=== PATIENT | female | born 1950 | race Caucasian/White ===

== ENCOUNTER 2017-01-28 12:36 | Emergency (ER) | payer MEDICARE ==
[~2017-01-28] VITALS: Ht 154.9 cm; Wt 44.0 kg
[~2017-01-28 12:36] MED LIST: LEVO25TA4 PO
[2017-01-28 12:40] VITALS: BP 216/100; PULSE 103; RESP 20; TEMP 98.7; O2SAT 98
[2017-01-28 12:50] VITALS: BP 186/87; PULSE 93; RESP 17; O2SAT 98
[2017-01-28] MEDS ORDERED: ASPI325T PO (12:57)
[2017-01-28] MEDS ORDERED: DIAZ5TAB PO (12:57)
[2017-01-28 12:59] VITALS: O2SAT 98
[2017-01-28] MEDS ORDERED: SODIUM CHLORIDE 0.9% FLUSH 10 ML FLUSH IVF PRN (13:00)
--- NOTE | 2017-01-28 13:11 | PD ---
HPI Chief Complaint: Neuro Symptoms/ Deficits Time Seen by Provider: 12:55 Travel History International Travel<30 days: No Contact w/Intl Traveler<30days: No Traveled to known affect area: No History of Present Illness HPI The patient was seen and examined in the presence of the nurse. This patient complains of neurologic symptoms. She was admitted here 8 months ago for neurologic symptoms and saw a neurologist and had studies done but then signed out against advice. She does follow up with a neurologist Dr. Sargent as an outpatient and saw him 2 months ago. For the last 8 months she has had frequent spells where she gets stuttering and a phasic speech and left arm numbness. The spells resolve on their own. She had those again today at 11 AM but decided to come to the emergency room today because she also had some numbness in her left face. No motor strength problems. No confusion or head injury. She took 2 aspirin today. Severity of symptoms was moderate. Duration 2 hours. No alleviating factors. Her speech is back to normal before I evaluated her. PFSH Past Medical History Cerebrovascular Accident: Yes (TIA) Diminished Hearing: No Thyroid Disease: Yes ?: Not Past Surgical History Eye Surgery: Yes (BILAT LASIX SX) Other Surgery: Yes (BREAST IMPLANTS) Social History Alcohol Use: Yes (SPECIAL OCCASIONS - LAST DRINK 08/31/07; PT'S -DAY) Tobacco Use: Yes (1PPD) Substance Use: No (PT DENIES) Allergies-Medications (Allergen,Severity, Reaction): Coded Allergies: Flagyl (Verified Adverse Reaction, Severe, NV, 01/28/17) Reported Meds & Prescriptions Reported Meds & Active Scripts Active Reported Diazepam 5 Mg Tab 5 Mg PO BID PRN Aspirin 325 Mg Tab 325 Mg PO DAILY Review of Systems General / Constitutional: No: Fever Eyes: No: Visual changes HENT: No: Headaches Cardiovascular: No: Chest Pain or Discomfort Respiratory: No: Shortness of Breath Gastrointestinal: No: Abdominal Pain Genitourinary: No: Dysuria Musculoskeletal: No: Pain Skin: No Rash Neurologic: Positive: Slurred Speech, Sensory Disturbance, No: Weakness Psychiatric: No: Depression Endocrine: No: Polydipsia Hematologic/Lymphatic: No: Easy Bruising Physical Exam Narrative GENERAL: Well-nourished, well-developed patient in no apparent distress. SKIN: Focused skin assessment reveals no rash and nodules. Skin is Warm and dry. HEAD: Atraumatic. Normocephalic. EYES: Pupils equal and round. No scleral icterus. No injection or drainage. ENT: No nasal bleeding or discharge. Mucous membranes pink and moist. NECK: Trachea midline. No JVD. CARDIOVASCULAR: Regular rate and rhythm. No murmur appreciated. RESPIRATORY: No accessory muscle use. Clear to auscultation. Breath sounds equal bilaterally. GASTROINTESTINAL: Abdomen soft, non-tender, nondistended. Hepatic and splenic margins not palpable. MUSCULOSKELETAL: No obvious deformities. No clubbing. No cyanosis. No edema. NEUROLOGICAL: Awake and alert. No obvious cranial nerve deficits. Motor grossly within normal limits. Normal speech. Subjective sensory deficit in the left arm from shoulder to fingertips as well as the left cheek. She has some sensation in those areas but feels it's not as strong as the opposite side. No facial droop. PSYCHIATRIC: Appropriate mood and affect; insight and judgment normal. Data Data Last Documented VS Vital Signs Date Time Temp Pulse Resp B/P Pulse Ox O2 Delivery O2 Flow Rate FiO2 01/28/17 15:24 66 15 169/75 99 Room Air 01/28/17 12:40 98.7 Orders Electrocardiogram (01/28/17 12:56) Prothrombin Time / Inr (Pt) (01/28/17 12:56) Act Partial Throm Time (Ptt) (01/28/17 12:56) Complete Blood Count With Diff (01/28/17 12:56) Basic Metabolic Panel (Bmp) (01/28/17 12:56) Ct Brain W/O Iv Contrast(Rout) (01/28/17 12:56) Ecg Monitoring (01/28/17 12:56) Iv Access Insert/Monitor (01/28/17 12:56) Oximetry (01/28/17 12:56) Sodium Chloride 0.9% Flush (Ns Flush) (01/28/17 13:00) Cta Neck W Iv Contrast W 3d (01/28/17 ) Iohexol 350 Inj (Omnipaque 350 Inj) (01/28/17 15:16) Labs Laboratory Tests Test 01/28/17 13:00 White Blood Count 9.9 TH/MM3 Red Blood Count 4.61 MIL/MM3 Hemoglobin 13.8 GM/DL Hematocrit 41.9 % Mean Corpuscular Volume 90.9 FL Mean Corpuscular Hemoglobin 30.0 PG Mean Corpuscular Hemoglobin 33.0 % Concent Red Cell Distribution Width 13.6 % Platelet Count 125 TH/MM3 Mean Platelet Volume 10.9 FL Neutrophils (%) (Auto) 57.7 % Lymphocytes (%) (Auto) 35.2 % Monocytes (%) (Auto) 4.8 % Eosinophils (%) (Auto) 1.7 % Basophils (%) (Auto) 0.6 % Neutrophils # (Auto) 5.7 TH/MM3 Lymphocytes # (Auto) 3.5 TH/MM3 Monocytes # (Auto) 0.5 TH/MM3 Eosinophils # (Auto) 0.2 TH/MM3 Basophils # (Auto) 0.1 TH/MM3 CBC Comment DIFF FINAL Differential Comment Prothrombin Time 10.4 SEC Prothromb Time International 0.9 RATIO Ratio Activated Partial 26.1 SEC Thromboplast Time Sodium Level 136 MEQ/L Potassium Level 4.1 MEQ/L Chloride Level 103 MEQ/L Carbon Dioxide Level 26.3 MEQ/L Anion Gap 7 MEQ/L Blood Urea Nitrogen 16 MG/DL Creatinine 0.81 MG/DL Estimat Glomerular Filtration 71 ML/MIN Rate Random Glucose 105 MG/DL Calcium Level 9.3 MG/DL MDM Medical Decision Making Medical Screen Exam Complete: Yes Emergency Medical Condition: Yes Medical Record Reviewed: Yes Differential Diagnosis Ischemic CVA, hemorrhagic CVA, TIA Narrative Course I have reviewed the patient's electronic medical record. Reviewed neurologic consultation from a months ago. Reviewed her imaging studies. Does have vascular disease in the carotid areas I spoke with her neurologist Dr. Sargent He recommends doing brain CT as well as CT of the carotids now We will discuss the results when available Patient is not needing stroke alert at this time She is not a TPA candidate. Many of these symptoms are chronic over 8 months and she has had significant resolution in the last 2 hours with her speech being back to normal Blood pressure 186 systolic at this time IV placed I reviewed her EKG which shows sinus rhythm without ST elevation or ectopy Extended cardiac monitoring reveals sinus rhythm without ectopy CBC is normal Metabolic profile is normal Coagulation studies are normal Brain CT is stable without hemorrhage CTA of the carotids is reviewed in detail with neurologist. She does have a 60- 70% obstruction on the right side. The patient is adamant about not staying. She says if we try to admit her she will sign out AGAINST MEDICAL ADVICE. Her neurologist says that while not ideal we can discharge her and she have to follow up with her vascular surgeon Dr. Ramsey as soon as she can to discuss the new findings. She will follow-up with a neurologist as well. Patient is going to have to assume some risk areas we wanted to admit her and get this taken care of in the hospital given her waxing and waning neurologic symptoms but she is refusing. 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 Ramsey, vascular surgeon, tomorrow for follow-up Return if significant worsening occurs Med/Other Pt SpecificInfo: Other Disposition: 01 DISCHARGE HOME Condition: Stable Song Nuñez MD Jan 28, 2017 13:11
[2017-01-28 13:20] LABS: AUTOMATED NEUTROPHIL # 5.7 TH/MM3 (1.8-7.7); BASOPHIL # 0.1 TH/MM3 (0-0.2); BASOPHIL % 0.6 % (0.0-2.0); EOSINOPHIL # 0.2 TH/MM3 (0-0.4); EOSINOPHIL % 1.7 % (0.0-4.0); HEMATOCRIT 41.9 % (35.0-46.0); HEMO FLAGS DIFF FINAL; LYMPH % 35.2 % (9.0-44.0); LYMPHOCYTE # 3.5 TH/MM3 (1.0-4.8); MEAN CELL VOLUME 90.9 FL (80.0-100.0); MONO % 4.8 % (0.0-8.0); NEUT % 57.7 % (16.0-70.0); PLATELET COUNT 125 TH/MM3 (150-450); RED BLOOD COUNT 4.61 MIL/MM3 (4.00-5.30); RED CELL DISTRIBUTION WIDTH 13.6 % (11.6-17.2); WHITE BLOOD COUNT 9.9 TH/MM3 (4.0-11.0)
[2017-01-28 13:27] LABS: APTT (PATIENT) 26.1 SEC (24.3-30.1); INTERNATIONAL NORMALIZED RATIO 0.9 RATIO; PROTHROMBIN TIME - PATIENT 10.4 SEC (9.8-11.6)
[2017-01-28 13:38] LABS: BICARBONATE 26.3 MEQ/L (21.0-32.0); POTASSIUM 4.1 MEQ/L (3.5-5.1)
--- NOTE | 2017-01-28 14:28 | RADRPT ---
EXAM DATE/TIME: 01/28/2017 14:06 [facility] COMPARISON: CT BRAIN W/O CONTRAST, May 26, 2016, 13:39. INDICATIONS : Patient had slurred speach and headaches. RADIATION DOSE: 26.46 CTDIvol (mGy) MEDICAL HISTORY : Prior TIA. SURGICAL HISTORY : None. ENCOUNTER: Initial ACUITY: 1 day PAIN SCALE: 4/10 LOCATION: Left cranial TECHNIQUE: Multiple contiguous axial images were obtained of the head. Using automated exposure control and adj ustment of the mA and/or kV according to patient size, radiation dose was kept as low as reasonably a chievable to obtain optimal diagnostic quality images. DICOM format image data is available electro nically for review and comparison. FINDINGS: There is mild bilateral medial orbital frontal encephalomalacia which may relate to remote trauma. Th is is unchanged. There is also small area of encephalomalacia involving the mid high convexity right parietal occipital region which appears to have been subacute at the time of the comparison exam. The re is no evidence of intracranial mass or hemorrhage. There is nothing to specifically indicate an ac [place] infarction. The extracranial structures are benign and intact. CONCLUSION: No definite acute intracranial findings. Old injuries as described. Brett Quintana MD on January 28, 2017 at 14:25 Board Certified Radiologist. This report was verified electronically.
[2017-01-28] MEDS ORDERED: IOHEXOL 350 MG/ML 10 ML VIAL (for RAD DIAG) IV ONE (15:16)
[2017-01-28 15:24] VITALS: BP 169/75; PULSE 66; RESP 15; O2SAT 99
--- NOTE | 2017-01-28 15:40 | RADRPT ---
EXAM DATE/TIME: 01/28/2017 14:06 [facility] COMPARISON: CTA CAROTID ARTERIES W 3D RECON, May 26, 2016, 13:44. INDICATIONS : Patient had slurred speach and headaches. IV CONTRAST: 69 cc Omnipaque 350 (iohexol) IV RADIATION DOSE: 24.02 CTDIvol (mGy) MEDICAL HISTORY : Prior TIA SURGICAL HISTORY : None. ENCOUNTER: Initial ACUITY: 1 day PAIN SCALE: 4/10 LOCATION: Left cranial Elevated flow velocities and ICA/CCA ratios have been found to correlate with increased degrees of vessel stenosis, calculated as percentage of diameter relative to a normal segment of distal ICA/CCA. TECHNIQUE: Volumetric scanning was performed using a multirow detector CT scanner. The data was post processed with a variety of visualization algorithms including full-volume maximum intensity projection, multip lanar sliding thin-slab reformation, curved-planar reformation, and surface-rendering techniques. Us ing automated exposure control and adjustment of the mA and/or kV according to patient size, radiatio n dose was kept as low as reasonably achievable to obtain optimal diagnostic quality images. DICOM f ormat image data is available electronically for review and comparison. FINDINGS: AORTIC ARCH: There is a three-vessel origin of the great vessels from the aorta. Moderate calcification is seen a t the origin of the left subclavian artery. RIGHT CAROTID: The common carotid artery is intact. There is large ulceration origin of the right common carotid co ntaining the mixture of soft and hard plaque compromising the lumen by 60-70%. LEFT CAROTID: The common carotid artery is intact. Smooth less than 50% stenosis is present origin of the left int ernal carotid. VERTEBRALS: Both vertebral arteries are patent with calcification of the origin of the right vertebral artery. CONCLUSION: Borderline significant stenosis on the right the large ulceration present containing both hard and so ft plaque. Mild stenosis on the left. Az Osman MD FACR on January 28, 2017 at 15:35 Board Certified Radiologist. This report was verified electronically.
--- NOTE | 2017-01-29 11:33 | EKG ---
Date Performed: 01/28/2017 Time Performed: 12:50:23 PTAGE: 66 years EKG: Sinus rhythm POSSIBLE RIGHT ATRIAL ENLARGEMENT BORDERLINE ECG PREVIOUS TRACING : 05/26/2016 14.09 Right atrial abnormality is new since the prior tracing. DOCTOR: Mihai Sheehan Interpretating Date/Time 01/29/2017 11:31:12
== END 2017-01-28 18:10 | disposition home or self-care (01) ==
LOC: NEPE 12:36
DX: G45.1 Carotid artery syndrome (hemispheric) (principal); I77.9 Disorder of arteries and arterioles, unspecified; R94.31 Abnormal electrocardiogram [ECG] [EKG]; F17.210 Nicotine dependence, cigarettes, uncomplicated; Z86.73 Personal history of transient ischemic attack (TIA), and cerebral infarction without residual deficits; Z79.82 Long term (current) use of aspirin; Z79.899 Other long term (current) drug therapy
CPT/HCPCS: 70450; 70498; 80048; 85025; 85610; 85730; 93005; 99285; Q9967

== ENCOUNTER 2017-01-29 10:37 | Inpatient (IN) | payer MEDICARE ==
[2017-01-29] VITALS (7 sets, daily range): BP systolic 136–178; BP diastolic 59–85; PULSE 61–95; RESP 14–20; TEMP 97.7–97.9; O2SAT 98–99
[~2017-01-29] VITALS: Ht 154.9 cm; Wt 47.0 kg
[~2017-01-29 10:37] MED LIST changes: +ASPI325T PO; +DIAZ5TAB PO; -LEVO25TA4 PO
--- NOTE | 2017-01-29 11:04 | PD ---
HPI Chief Complaint: Numbness/Tingling Time Seen by Provider: 11:04 Travel History International Travel<30 days: No Contact w/Intl Traveler<30days: No Traveled to known affect area: No History of Present Illness HPI 66 year old female with history of CAD, TIAs, thyroid disease, tobacco dependency presents to the ED for evaluation of ongoing spells of stuttering and asphasia with occasional LUE weakness and numbness. These have been intermittently occurring for the last 8 months. The spells resolve on their own. The patient is followed by Dr. Sargent. She was seen and evaluated yesterday with recommendation for admission, but did not want to be admitted, so was discharged with instructions to follow up with Dr. Ramsey. She said today with worsening of her symptoms and frontal headache, she called Dr. Sargent and was advised to come to the ED. Pt reports no chest pain or tightness; her LUE weakness has resolved at this point. She denies any nausea or vomiting; no visual disturbances. She states smokes one pack of tobacco cigarettes daily. Occasional alcohol use. No other symptoms to report this time. PFSH Past Medical History Cerebrovascular Accident: Yes (TIA) Diminished Hearing: No Thyroid Disease: Yes ?: Not Past Surgical History Eye Surgery: Yes (BILAT LASIX SX) Other Surgery: Yes (BREAST IMPLANTS) Social History Alcohol Use: Yes (SPECIAL OCCASIONS - LAST DRINK 08/31/07; PT'S B-DAY) Tobacco Use: Yes (1PPD) Substance Use: No (PT DENIES) Allergies-Medications (Allergen,Severity, Reaction): Coded Allergies: Flagyl (Verified Adverse Reaction, Severe, NV, 01/29/17) Reported Meds & Prescriptions Reported Meds & Active Scripts Active Reported Diazepam 5 Mg Tab 5 Mg PO BID PRN Aspirin 325 Mg Tab 325 Mg PO DAILY Review of Systems Except as stated in HPI: all other systems reviewed are Neg Physical Exam Narrative GENERAL: Thin female patient, ambulatory with a nonantalgic gait, no acute distress. Pt has cleared speech, but appears to struggle with words at times. SKIN: Focused skin assessment warm/dry. HEAD: Atraumatic. Normocephalic. EYES: Pupils react to equal; R seems slightly larger than left on initial exam. EOMI No scleral icterus. No injection or drainage. ENT: No nasal bleeding or discharge. Mucous membranes pink and moist. NECK: Trachea midline. No JVD. CARDIOVASCULAR: Regular rate and rhythm. No murmur appreciated. RESPIRATORY: No accessory muscle use. Clear to auscultation. Breath sounds equal bilaterally. GASTROINTESTINAL: Abdomen soft, non-tender, nondistended. Hepatic and splenic margins not palpable. MUSCULOSKELETAL: No obvious deformities. No clubbing. No cyanosis. No edema. Slight weakness LUE; no pronator drift. NEUROLOGICAL: Awake and alert. No obvious cranial nerve deficits. Moves all extremities Clear speech. PSYCHIATRIC: Appropriate mood and affect; insight and judgment normal. Data Data Last Documented VS Vital Signs Date Time Temp Pulse Resp B/P Pulse Ox O2 Delivery O2 Flow Rate FiO2 01/29/17 12:00 73 16 136/59 99 Room Air 01/29/17 10:40 97.7 Orders Electrocardiogram (01/29/17 11:14) Prothrombin Time / Inr (Pt) (01/29/17 11:14) Act Partial Throm Time (Ptt) (01/29/17 11:14) Complete Blood Count With Diff (01/29/17 11:14) Comprehensive Metabolic Panel (01/29/17 11:14) Drug Screen, Random Urine (01/29/17 11:14) Urinalysis - C+S If Indicated (01/29/17 11:14) Chest, Single Ap (01/29/17 11:14) Ecg Monitoring (01/29/17 11:14) Iv Access Insert/Monitor (01/29/17 11:14) Oximetry (01/29/17 11:14) Sodium Chloride 0.9% Flush (Ns Flush) (01/29/17 11:15) Thyroid Stimulating Hormone (01/29/17 11:14) Consult Vascular Surgery (01/29/17 ) Heparin-D5w Inj (Heparin-D5w Inj) (01/29/17 11:30) Sodium Chlor 0.9% 1000 Ml Inj (Ns 1000 M (01/29/17 11:30) Consult Neurology (01/29/17 ) Aspirin (Aspirin) (01/29/17 11:30) (Hub Use Only)In Phy Cons/Ref (01/29/17 ) [place] (01/29/17 11:28) (Hub Use Only)In Phy Cons/Ref (01/29/17 ) Labs Laboratory Tests Test 01/29/17 11:15 White Blood Count 10.0 TH/MM3 Red Blood Count 4.42 MIL/MM3 Hemoglobin 13.7 GM/DL Hematocrit 39.5 % Mean Corpuscular Volume 89.5 FL Mean Corpuscular Hemoglobin 30.9 PG Mean Corpuscular Hemoglobin 34.6 % Concent Red Cell Distribution Width 13.3 % Platelet Count 112 TH/MM3 Mean Platelet Volume 11.2 FL Neutrophils (%) (Auto) 63.9 % Lymphocytes (%) (Auto) 28.9 % Monocytes (%) (Auto) 4.9 % Eosinophils (%) (Auto) 1.6 % Basophils (%) (Auto) 0.7 % Neutrophils # (Auto) 6.4 TH/MM3 Lymphocytes # (Auto) 2.9 TH/MM3 Monocytes # (Auto) 0.5 TH/MM3 Eosinophils # (Auto) 0.2 TH/MM3 Basophils # (Auto) 0.1 TH/MM3 CBC Comment DIFF FINAL Differential Comment Sodium Level 138 MEQ/L Potassium Level 4.0 MEQ/L Chloride Level 104 MEQ/L Carbon Dioxide Level 28.1 MEQ/L Anion Gap 6 MEQ/L Blood Urea Nitrogen 14 MG/DL Creatinine 0.83 MG/DL Estimat Glomerular Filtration 69 ML/MIN Rate Random Glucose 107 MG/DL Calcium Level 9.2 MG/DL Total Bilirubin 0.3 MG/DL Aspartate Amino Transf 19 U/L (AST/SGOT) Alkaline Phosphatase 72 U/L Total Protein 7.5 GM/DL Albumin 3.9 GM/DL MDM Medical Decision Making Medical Screen Exam Complete: Yes Emergency Medical Condition: Yes Medical Record Reviewed: Yes Differential Diagnosis TIA v CVA v CAD v electrolyte abnormality v neoplasm Narrative Course 66 year old female presents to the ED for evaluation of continued intermittent frontal headache, aphasia, stuttered speech, LUE numbness/weakness. Patient appears without distress. Her vital signs are stable. Very slight left upper extremity weakness otherwise moves all extremities without difficulty. Patient has clear speech but it is delayed with some apparent difficulty finding words. Complete work up was done yesterday with borderline significant carotid stenosis identified. I discussed the patient maintained physician who also spoke with Dr. Sargent and after review of the patient's record and recommendation from him, patient plan is [facility]. Basic labs are repeated and patient is started on heparin drip per Dr. Sargent's recommendation; HOB flat. 1123 A call has been placed to [facility]; waiting for returned call for admission. [phone] Another call has been placed to [facility]; waiting returned call [phone] No returned call; repeat call to [facility] is placed [phone] Repeat call to [facility]; informed Dr. Bird will be calling back. Awaiting returned call for admission Diagnosis Primary Impression: Expressive aphasia Additional Impressions: Arm numbness left Carotid arterial disease Qualified Code: I77.9 - Bilateral carotid artery disease TIA (transient ischemic attack) Qualified Code: G45.9 - Transient cerebral ischemia, unspecified type Admitting Information Admitting Physician Requests: Admit Condition: Stable Debbi De Leon Jan 29, 2017 11:04
[2017-01-29] MEDS ORDERED: SODIUM CHLORIDE 0.9% FLUSH 10 ML FLUSH IVF PRN (11:15)
--- NOTE | 2017-01-29 11:26 | PD ---
Data Data Last Documented VS Vital Signs Date Time Temp Pulse Resp B/P Pulse Ox O2 Delivery O2 Flow Rate FiO2 01/29/17 11:00 89 18 178/85 98 Room Air 01/29/17 10:40 97.7 Orders Electrocardiogram (01/29/17 11:14) Prothrombin Time / Inr (Pt) (01/29/17 11:14) Act Partial Throm Time (Ptt) (01/29/17 11:14) Complete Blood Count With Diff (01/29/17 11:14) Comprehensive Metabolic Panel (01/29/17 11:14) Drug Screen, Random Urine (01/29/17 11:14) Urinalysis - C+S If Indicated (01/29/17 11:14) Chest, Single Ap (01/29/17 11:14) Ecg Monitoring (01/29/17 11:14) Iv Access Insert/Monitor (01/29/17 11:14) Oximetry (01/29/17 11:14) Sodium Chloride 0.9% Flush (Ns Flush) (01/29/17 11:15) Thyroid Stimulating Hormone (01/29/17 11:14) Consult Vascular Surgery (01/29/17 ) Heparin-D5w Inj (Heparin-D5w Inj) (01/29/17 11:30) Ns (Bolus) Inj (01/29/17 11:30) Consult Neurology (01/29/17 ) Aspirin (Aspirin) (01/29/17 11:30) MDM Medical Record Reviewed: Yes Supervised Visit with NATE: Yes Narrative Course I, Dr. Dorsey, have reviewed the advance practice practitioner's documentation and am in agreement, met with the patient face to face, made the diagnosis, and the medical decision making was done by me. *My assessment and Findings: TIA Patient was seen and evaluated yesterday, patient refuses admission. CTA was performed yesterday as patient has been having slurring speech, numbness and headache. CTA showed right coronary artery with large ulceration containing mixtures of soft and hard plaque compromising the lumen by 60-70% Left sided of carotid Arteries are intact, it is smooth with less than 50% stenosis. Patient reports that this morning, she had left-sided arm weakness, aphasia, she did call her neurologist Dr. Delgado who recommended that patient return to the hospital for admission and for further workup. Patient is agreeable for admission and workup. Case reviewed with Dr. Delgado, does not require a repeat CT of the head at this time. Requests vascular consult, a consult to himself, heparin drip without bolus, IV fluids, a flatbed, no treatment for hypertension unless systolic blood pressures greater than 200. Will admit to medicine service Diagnosis Primary Impression: TIA (transient ischemic attack) Qualified Code: G45.9 - Transient cerebral ischemia, unspecified type Admitting Information Admitting Physician Requests: Observation Celestina Dorsey DO Jan 29, 2017 11:26
[2017-01-29] MEDS ORDERED: ASPIRIN 325 MG TAB PO ONE (11:30)
[2017-01-29] MEDS ORDERED: SODIUM CHLOR 0.9% 1000 ML INJ 1,000 ML IV ONE (11:30)
--- NOTE | 2017-01-29 11:40 | RADRPT ---
EXAM DATE/TIME: 01/29/2017 11:20 [facility] COMPARISON: No previous studies available for comparison. INDICATIONS : Short of breath MEDICAL HISTORY : Cardiovascular disease. TIA SURGICAL HISTORY : None. ENCOUNTER: [facility] ACUITY: 4 - 6 days PAIN SCORE: 0/10 LOCATION: chest FINDINGS: A single view of the chest demonstrates the lungs to be symmetrically aerated without evidence of mas s, infiltrate or effusion. Increased density is noted throughout the mid and lower lung garcia from o verlying breast implants. The cardiomediastinal contours are unremarkable. Osseous structures are in tact. CONCLUSION: No acute disease. Christian Orozco MD on January 29, 2017 at 11:38 Board Certified Radiologist. This report was verified electronically.
[2017-01-29 11:53] LABS: AUTOMATED NEUTROPHIL # 6.4 TH/MM3 (1.8-7.7); BASOPHIL # 0.1 TH/MM3 (0-0.2); BASOPHIL % 0.7 % (0.0-2.0); EOSINOPHIL # 0.2 TH/MM3 (0-0.4); EOSINOPHIL % 1.6 % (0.0-4.0); HEMATOCRIT 39.5 % (35.0-46.0); HEMO FLAGS DIFF FINAL; LYMPH % 28.9 % (9.0-44.0); LYMPHOCYTE # 2.9 TH/MM3 (1.0-4.8); MEAN CELL VOLUME 89.5 FL (80.0-100.0); MEAN CORPUSCULAR HEMOGLOBIN 30.9 PG (27.0-34.0); MEAN CORPUSCULAR HGB CONC 34.6 % (32.0-36.0); MONO % 4.9 % (0.0-8.0); NEUT % 63.9 % (16.0-70.0); PLATELET COUNT 112 TH/MM3 (150-450); RED BLOOD COUNT 4.42 MIL/MM3 (4.00-5.30); RED CELL DISTRIBUTION WIDTH 13.3 % (11.6-17.2)
[2017-01-29 12:16] LABS: ANION GAP 6 MEQ/L (5-15); AST (GOT) 19 U/L (15-37); BICARBONATE 28.1 MEQ/L (21.0-32.0); BLOOD UREA NITROGEN 14 MG/DL (7-18); CHLORIDE 104 MEQ/L (98-107); GLOMERULAR FILTRATION RATE 69 ML/MIN (>89); SODIUM (NA) 138 MEQ/L (136-145)
[2017-01-29 12:17] LABS: ALKALINE PHOSPHATASE 72 U/L (45-117); TOTAL BILIRUBIN ADULT 0.3 MG/DL (0.2-1.0)
[2017-01-29] MEDS: HEPARIN-D5W INJ 250 ML IV SCH (12:17)
[2017-01-29 12:37] LABS: ALT (GPT) 20 U/L (10-53)
[2017-01-29] MEDS ORDERED: SODIUM CHLORIDE 0.9% FLUSH 5 ML FLUSH IV FLUSH PRN (12:45)
[2017-01-29] MEDS ORDERED: GLUCAGON 1 MG/ML VIAL OTHER PRN (12:45)
[2017-01-29] MEDS ORDERED: DEXTROSE 50% IN WATER 50 ML VIAL(D50) IV PUSH PRN (12:45)
[2017-01-29] MEDS ORDERED: ENALAPRILAT 1.25 MG/ML VIAL IV PRN (12:45)
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
[2017-01-29 13:11] LABS: BLOOD, URINE NEG (NEG); GLUCOSE,URINE NEG (NEG); KETONE, URINE NEG (NEG); NITRITE,URINE NEG (NEG); URINE COLOR YELLOW (YELLW/STRAW)
[2017-01-29 13:12] LABS: COMMENT (UR) CATH-CULT NOT IND; CULTURE IF INDICATED CATH CULTURE NOT IND
[2017-01-29 13:12] LABS: PROTHROMBIN TIME - PATIENT 11.2 SEC (9.8-11.6)
[2017-01-29 13:13] LABS: APTT (PATIENT) 26.1 SEC (24.3-30.1)
[2017-01-29 13:18] LABS: AMPHETAMINE, URINE NEG (NEG); BARBITURATES, URINE NEG (NEG); COCAINE, URINE NEG (NEG)
[2017-01-29] MEDS: INSULIN ASPART SUPPLEMENTAL SCALE SQ SCH ×2 (16:00→20:30)
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
[2017-01-29] MEDS ORDERED: DIAZEPAM 5 MG TAB PO PRN (17:15)
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
--- NOTE | 2017-01-29 19:26 | RADRPT ---
EXAM DATE/TIME: 01/29/2017 18:39 [facility] COMPARISON: CTA CAROTID ARTERIES W 3D RECON, January 28, 2017, 14:06. INDICATIONS : Cerebrovascular accident. MEDICAL HISTORY : Stroke. Hypothyroidism. Headache. Weakness. SURGICAL HISTORY : Bilateral lasix surgery. Bilateral wrist fracture repair. Breast implants . ENCOUNTER: Initial ACUITY: 1 day PAIN SCORE: 3/10 LOCATION: Bilateral neck PEAK SYSTOLIC VELOCITIES (cm/sec): ICA/CCA RATIO: Right: 1.4 Left: 0.9 ICA: Right: 102.0 Left: 106.3 CCA: Right: 73.9 Left: 113.6 ECA: Right: 22.7 Left: 150.2 VERTEBRAL: Right: 42.8 antegrade Left: 70.9 antegrade Elevated flow velocities and ICA/CCA ratios have been found to correlate with increased degrees of vessel stenosis, calculated as percentage of diameter relative to a normal segment of distal ICA/CCA FINDINGS: RIGHT CAROTID: There is no evidence for a hemodynamically significant carotid stenosis. Minimal int imal hyperplasia is present with scattered calcific plaque. CTA head showed enlarged ulceration. LEFT CAROTID: There is no evidence for a hemodynamically significant carotid stenosis. Minimal inti mal hyperplasia is present with scattered calcific plaque. VERTEBRAL ARTERIES: Flow is antegrade in both vertebral arteries. MISCELLANEOUS: There are no ancillary masses or adenopathy. CONCLUSION: Negative examination for a hemodynamically significant carotid stenosis. Ulceration on the right by CTA. Az Osman MD FACR Board Certified Radiologist. This report was verified electronically.
[2017-01-29 19:46] LABS: HDL CHOLESTEROL 56.7 MG/DL (40.0-60.0); LDL CHOLESTEROL 156 MG/DL (0-99)
[2017-01-29] MEDS: SODIUM CHLOR 0.9% 1000 ML INJ 1,000 ML IV SCH (20:30)
[2017-01-29] MEDS: SODIUM CHLORIDE 0.9% FLUSH 5 ML FLUSH IV FLUSH SCH (20:30)
[2017-01-29 20:34] LABS: APTT (PATIENT) 28.1 SEC (24.3-30.1)
[2017-01-29] MEDS ORDERED: GADODIAMIDE PF 287 MG/ML 5 ML VIAL (for RAD MRI) IV ONE (23:01)
--- NOTE | 2017-01-29 23:43 | RADRPT ---
EXAM DATE/TIME: 01/29/2017 23:00 [facility] COMPARISON: CTA BRAIN W 3D RECON, May 26, 2016, 13:44. INDICATIONS : CVA. MEDICAL HISTORY : Hypothyroidism. SURGICAL HISTORY : Breast augmentation. Wrist. ENCOUNTER: Subsequent ACUITY: 1 day PAIN SCORE: LOCATION: Please note a normal MRA of the brain does not entirely exclude the possibility of a small aneurysm, nor the possibility of distal intracranial vessel disease. TECHNIQUE: 3D time of flight MRA was performed. Source images, multiplanar STS MIP, and 3D volume MIP reconstru ctions were reviewed. FINDINGS: Patchy luminal irregularity seen distally in the bilateral posterior and middle cerebral artery distr ibution. Posterior circulation is right worse on left and middle cerebral circulation is left worse t wiggins right. No aneurysm. No acute thrombosis demonstrated. CONCLUSION: Findings suggest probable mild hypoperfusion superimposed on mild intracranial atherosclerotic diseas e. No perceptible acute thrombosis. No aneurysm. Brett Ruth MD on January 29, 2017 at 23:38 Board Certified Radiologist. This report was verified electronically.
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
[2017-01-30] VITALS (8 sets, daily range): BP systolic 137–170; BP diastolic 65–77; PULSE 60–75; RESP 18; TEMP 97.7–98.3; O2SAT 94–99
[2017-01-30] MEDS: INSULIN ASPART SUPPLEMENTAL SCALE SQ SCH ×4 (06:40→21:00)
[2017-01-30] MEDS: SODIUM CHLOR 0.9% 1000 ML INJ 1,000 ML IV SCH (07:44)
--- NOTE | 2017-01-30 08:14 | HHI.PR ---
Subjective Remarks sr Objective Vital Signs Date Time Temp Pulse Resp B/P Pulse Ox O2 Delivery O2 Flow Rate FiO2 01/30/17 04:28 97.9 65 18 165/74 96 01/30/17 02:00 60 01/30/17 01:35 98.1 69 18 170/77 94 01/29/17 20:10 97.9 61 14 162/77 99 01/29/17 17:52 97.8 65 18 161/69 99 01/29/17 17:10 62 16 158/71 99 01/29/17 15:00 72 16 154/69 98 Room Air 01/29/17 12:00 73 16 136/59 99 Room Air 01/29/17 11:00 89 18 178/85 98 Room Air 01/29/17 10:50 93 18 99 Room Air 01/29/17 10:40 97.7 95 20 142/65 98 Room Air I/O 01/29/17 01/29/17 01/29/17 01/30/17 01/30/17 01/30/17 07:00 15:00 23:00 07:00 15:00 23:00 Intake Total 56 ml 468 ml Balance 56 ml 468 ml Intake IV Total 468 ml Other 56 ml # Voids 4 # Bowel Movements 3 Result Diagram: 01/29/17 1115 01/29/17 1115 Objective Remarks vff no new spells moves all well nl speech Assessment and Plan Assessment and Plan imp mri small left cortical acute cva old r cva mra cow i thought looked overall ok echo andholter pend LDL 156 trop neg plan is coumdin with bilat cva i highly recommend she stay on iv hep until inr 2-2.5 fu echo and holter watch daily inr needs statin started i will fu thursday med team plz follow inr 10mg today then 5mg a day no Yair Rankin MD Jan 30, 2017 08:14
[2017-01-30 08:21] LABS: APTT (PATIENT) 35.5 SEC (24.3-30.1)
[2017-01-30 08:43] LABS: HDL CHOLESTEROL 46.9 MG/DL (40.0-60.0)
[2017-01-30] MEDS: SODIUM CHLORIDE 0.9% FLUSH 5 ML FLUSH IV FLUSH SCH ×2 (09:00→21:00)
[2017-01-30] MEDS ORDERED: ASPIRIN 325 MG TAB PO SCH (09:00)
--- NOTE | 2017-01-30 13:05 | HHI.PR ---
Subjective Remarks Patient reports she is feeling well. All neurological symptoms have resolved. No expressive aphasia, no more numbness. She requested that I change her dose of Valium to 10 mg which is what she normally takes at home. Objective Vitals Vital Signs Date Time Temp Pulse Resp B/P Pulse Ox O2 Delivery O2 Flow Rate FiO2 01/30/17 12:00 97.9 69 18 137/71 96 01/30/17 08:00 97.7 64 18 160/69 96 01/30/17 04:28 97.9 65 18 165/74 96 01/30/17 02:00 60 01/30/17 01:35 98.1 69 18 170/77 94 01/29/17 20:10 97.9 61 14 162/77 99 01/29/17 17:52 97.8 65 18 161/69 99 01/29/17 17:10 62 16 158/71 99 01/29/17 15:00 72 16 154/69 98 Room Air I/O 01/29/17 01/29/17 01/29/17 01/30/17 01/30/17 01/30/17 07:00 15:00 23:00 07:00 15:00 23:00 Intake Total 56 ml 468 ml Balance 56 ml 468 ml Intake IV Total 468 ml Other 56 ml # Voids 4 # Bowel Movements 3 Result Diagram: 01/29/17 1115 01/29/17 1115 Imaging Last Impressions Head Magnetic Resonance Angiography 01/29/171823 Signed Impressions: Service Date/Time: January 23:00 - CONCLUSION: Findings suggest probable mild hypoperfusion superimposed on mild intracranial atherosclerotic disease. No perceptible acute thrombosis. No aneurysm. Brett Ruth MD Carotid Artery Ultrasound 01/29/171823 Signed Impressions: Service Date/Time: January 18:39 - CONCLUSION: Negative examination for a hemodynamically significant carotid stenosis. Ulceration on the right by CTA. Az Osman MD Brain MRI 01/29/171823 Signed Impressions: Service Date/Time: January 23:00 - CONCLUSION: 1. Tiny acute cortical infarct of the left parietal lobe, probably embolic. 2. Small, old infarct of the right parietal lobe. 3. Chronic encephalomalacia and gliosis anteromedially of both frontal lobes probably related to remote trauma. Brett Ruth MD Chest X-Ray 01/29/17 1114 Signed Impressions: Service Date/Time: January 11:20 - CONCLUSION: No acute disease. Christian Orozco MD Objective Remarks GENERAL: This is a well-nourished, well-developed patient, in no apparent distress. CARDIOVASCULAR: Normal rate and regular rhythm without murmurs, gallops, or rubs. RESPIRATORY: Good respiratory efforts. Breath sounds equal and clear to auscultation bilaterally. GASTROINTESTINAL: Abdomen soft, non-tender, non-distended. Normal active bowel sounds MUSCULOSKELETAL: Extremities without cyanosis, or edema. NEURO: Alert & Oriented x4 to person, place, time, situation. Moves all ext x4 PSYCH: Appropriate mood and affect. A/P Problem List: (1) CVA (cerebral vascular accident) ICD Code: I63.9 Status: Acute (2) Carotid arterial disease ICD Code: I77.9 Status: Acute (3) TIA (transient ischemic attack) ICD Code: G45.9 Status: Acute Assessment and Plan 66-year-old female with: CVA: Symptoms resolved. MRI revealed a small left cortical acute infarct and an old right CVA. Patient with known carotid artery disease. - Appreciate neurology following. Given she has had bilateral strokes. Recommendation is for Coumadin. Continue heparin drip transitioning to Coumadin with INR goal of 2-2.5. - Follow daily INR. Currently on Coumadin 5 mg daily. Status post 10 mg 1. Carotid artery disease. Has been evaluated by vascular surgery. Medical management is advised. - Continue aspirin, statin. GI prophylaxis: Stool softener PRN constipation. DVT PPx: On heparin. Problem Qualifiers (1) Carotid arterial disease: Qualified Code: I77.9 - Bilateral carotid artery disease (2) TIA (transient ischemic attack): Qualified Code: G45.9 - Transient cerebral ischemia, unspecified type Ivania Bird MD Jan 30, 2017 13:05
--- NOTE | 2017-01-30 14:55 | EKG ---
Date Performed: 01/29/2017 Time Performed: 11:46:36 PTAGE: 66 years EKG: Sinus rhythm POSSIBLE RIGHT ATRIAL ENLARGEMENT POSSIBLE LEFT ATRIAL ENLARGEMENT POSSIBLE RIGHT VENTRICULAR CONDUC TION DELAY Compared to prior tracing no significant change BORDERLINE ECG PREVIOUS TRACING : 01/28/2017 12.50 DOCTOR: Anton Segovia Interpretating Date/Time 01/30/2017 14:54:07
[2017-01-30] MEDS ORDERED: WARFARIN SOD 5 MG TAB PO ONE (16:00)
--- NOTE | 2017-01-30 16:13 | PD.VS.PN ---
Subjective Subjective/Hospital Course Pt in bed w/ HOB at 30 Pt w/o any new neurological events Left sided facial droop/arm weakness resolved Speech clear Pt w/o expressive aphasia Objective Vitals/I&O Date Time Temp Pulse Resp B/P Pulse Ox O2 Delivery O2 Flow Rate FiO2 01/30/17 12:00 97.9 69 18 137/71 96 01/30/17 08:00 97.7 64 18 160/69 96 01/30/17 04:28 97.9 65 18 165/74 96 01/30/17 02:00 60 01/30/17 01:35 98.1 69 18 170/77 94 01/29/17 20:10 97.9 61 14 162/77 99 01/29/17 17:52 97.8 65 18 161/69 99 01/29/17 17:10 62 16 158/71 99 01/30/17 01/30/17 01/30/17 07:00 15:00 23:00 Intake Total 468 ml Balance 468 ml Physical Exam GENERAL: A&OX3,NAD,GCS15 SKIN: Warm and dry Equal shotweld operator strength Laboratory Laboratory Tests Test 01/29/17 01/30/17 19:22 07:55 Activated Partial 28.1 35.5 Thromboplast Time Triglycerides Level 180 Cholesterol Level 226 LDL Cholesterol 143 HDL Cholesterol 46.9 Cholesterol/HDL Ratio 4.81 Imaging Last 48 hours Impressions Head Magnetic Resonance Angiography 01/29/171823 Signed Impressions: Service Date/Time: January 23:00 - CONCLUSION: Findings suggest probable mild hypoperfusion superimposed on mild intracranial atherosclerotic disease. No perceptible acute thrombosis. No aneurysm. Brett Ruth MD Carotid Artery Ultrasound 01/29/171823 Signed Impressions: Service Date/Time: January 18:39 - CONCLUSION: Negative examination for a hemodynamically significant carotid stenosis. Ulceration on the right by CTA. Az Osman MD Brain MRI 01/29/171823 Signed Impressions: Service Date/Time: January 23:00 - CONCLUSION: 1. Tiny acute cortical infarct of the left parietal lobe, probably embolic. 2. Small, old infarct of the right parietal lobe. 3. Chronic encephalomalacia and gliosis anteromedially of both frontal lobes probably related to remote trauma. Brett Ruth MD Chest X-Ray 01/29/17 1114 Signed Impressions: Service Date/Time: January 11:20 - CONCLUSION: No acute disease. Christian Orozco MD Assessment and Plan Assessment: (1) Carotid arterial disease Status: Acute Plan Pt seen, examined. Has potential TIA-like symptoms though not classic. CTA reviewed: R 50-60% stenosis at bifurcation. Risk/benefit of CEA in moderate plaque not as favorable for surgery, but if neurology feels symptoms are due to carotid plaque, will offer CEA. Needs ASA and statin. Plan Continue medical management Will continue to follow Gabriella CARVALHO [facility] [phone] Problem Qualifiers (1) Carotid arterial disease: Qualified Code: I77.9 - Bilateral carotid artery disease Gabriella Macario Jan 30, 2017 16:12
[2017-01-30] MEDS: WARFARIN SOD 5 MG TAB PO SCH (16:22)
[2017-01-30 18:00] LABS: AUTOMATED NEUTROPHIL # 4.2 TH/MM3 (1.8-7.7); BASOPHIL # 0.1 TH/MM3 (0-0.2); BASOPHIL % 0.7 % (0.0-2.0); EOSINOPHIL # 0.2 TH/MM3 (0-0.4); EOSINOPHIL % 2.9 % (0.0-4.0); HEMATOCRIT 38.2 % (35.0-46.0); LYMPH % 37.7 % (9.0-44.0); MEAN CELL VOLUME 90.6 FL (80.0-100.0); MEAN CORPUSCULAR HEMOGLOBIN 30.6 PG (27.0-34.0); MEAN CORPUSCULAR HGB CONC 33.8 % (32.0-36.0); MONO % 6.6 % (0.0-8.0); NEUT % 52.1 % (16.0-70.0); PLATELET COUNT 95 TH/MM3 (150-450); RED BLOOD COUNT 4.21 MIL/MM3 (4.00-5.30); RED CELL DISTRIBUTION WIDTH 13.5 % (11.6-17.2); WHITE BLOOD COUNT 8.1 TH/MM3 (4.0-11.0)
[2017-01-30 18:02] LABS: HEMO FLAGS AUTO DIFF
[2017-01-30 18:45] LABS: PLATELET ESTIMATE SMEAR LOW (NORMAL); PLATELET MORPHOLOGY ENLARGED (NORMAL); SCAN/DIFF AUTO DIFF CONFIRMED
[2017-01-30] MEDS: DIAZEPAM 5 MG TAB PO PRN (20:48)
--- NOTE | 2017-01-30 21:02 | MG ---
cc: MAVIS SARGENT MD Lab No: Date: 01/30/17 Age: 66 Sex: F Race: REFERRING PHYSICIAN Dr. Chong An EEG was obtained on this 66-year-old patient being evaluated for a left parietal tiny stroke. Encephalomalacia. The EEG is showing 10-12 per second alpha rhythms bilaterally. There is some intermixed theta activity on the left more than right frontotemporal head regions. There are some sharp waves intermixed on the left frontotemporal head region but no sharp or spike discharges. The background is reactive. The patient is awake and asleep. Photic stimulation showed some driving response bilaterally. INTERPRETATION Abnormal EEG because of intermittent left more than right frontotemporal slower rhythms with some associated sharp waves and some phase reversal but no definite epileptiform features present. Clinical and imaging correlation. Mavis Sargent MD [facility] /7:35 PM /8:52 PM
[2017-01-31] VITALS (8 sets, daily range): BP systolic 131–161; BP diastolic 62–83; PULSE 66–78; RESP 16–19; TEMP 97.6–98.2; O2SAT 96–99
[2017-01-31] MEDS: HEPARIN-D5W INJ 250 ML IV SCH (00:37)
[2017-01-31 01:27] LABS: APTT (PATIENT) 26.6 SEC (24.3-30.1)
[2017-01-31] MEDS: SODIUM CHLOR 0.9% 1000 ML INJ 1,000 ML IV SCH ×2 (01:57→09:26)
[2017-01-31] MEDS: INSULIN ASPART SUPPLEMENTAL SCALE SQ SCH ×4 (06:13→20:53)
[2017-01-31 08:42] LABS: APTT (PATIENT) 49.7 SEC (24.3-30.1); INTERNATIONAL NORMALIZED RATIO 1.1 RATIO; PROTHROMBIN TIME - PATIENT 12.7 SEC (9.8-11.6)
--- NOTE | 2017-01-31 08:48 | PD.VS.PN ---
Subjective Subjective/Hospital Course Pt neuro at baseline sitting and eating this morning no complaints except disappointed no surgery Objective Vitals/I&O Date Time Temp Pulse Resp B/P Pulse Ox O2 Delivery O2 Flow Rate FiO2 01/31/17 04:00 98.2 72 18 159/72 98 01/31/17 00:00 97.8 77 18 136/83 96 01/30/17 23:40 75 01/30/17 20:00 98.2 74 18 146/65 97 01/30/17 16:00 98.3 71 18 158/73 99 01/30/17 12:00 97.9 69 18 137/71 96 01/31/17 01/31/17 01/31/17 07:00 15:00 23:00 Intake Total 755 ml Balance 755 ml Physical Exam neuro intact, no focal deficits Laboratory Laboratory Tests Test 01/30/17 01/31/17 17:48 00:53 White Blood Count 8.1 Red Blood Count 4.21 Hemoglobin 12.9 Hematocrit 38.2 Mean Corpuscular Volume 90.6 Mean Corpuscular Hemoglobin 30.6 Mean Corpuscular Hemoglobin 33.8 Concent Red Cell Distribution Width 13.5 Platelet Count 95 Mean Platelet Volume 10.7 Neutrophils (%) (Auto) 52.1 Lymphocytes (%) (Auto) 37.7 Monocytes (%) (Auto) 6.6 Eosinophils (%) (Auto) 2.9 Basophils (%) (Auto) 0.7 Neutrophils # (Auto) 4.2 Lymphocytes # (Auto) 3.0 Monocytes # (Auto) 0.5 Eosinophils # (Auto) 0.2 Basophils # (Auto) 0.1 CBC Comment AUTO DIFF Differential Comment AUTO DIFF CONFIRMED Platelet Estimate LOW Platelet Morphology Comment ENLARGED Activated Partial 35.0 26.6 Thromboplast Time Imaging Last 48 hours Impressions Head Magnetic Resonance Angiography 01/29/171823 Signed Impressions: Service Date/Time: January 23:00 - CONCLUSION: Findings suggest probable mild hypoperfusion superimposed on mild intracranial atherosclerotic disease. No perceptible acute thrombosis. No aneurysm. Brett Ruth MD Carotid Artery Ultrasound 01/29/171823 Signed Impressions: Service Date/Time: January 18:39 - CONCLUSION: Negative examination for a hemodynamically significant carotid stenosis. Ulceration on the right by CTA. Az Osman MD Brain MRI 01/29/17 1824 Signed Impressions: Service Date/Time: January 23:00 - CONCLUSION: 1. Tiny acute cortical infarct of the left parietal lobe, probably embolic. 2. Small, old infarct of the right parietal lobe. 3. Chronic encephalomalacia and gliosis anteromedially of both frontal lobes probably related to remote trauma. Brett Ruth MD Chest X-Ray 01/29/17 1114 Signed Impressions: Service Date/Time: January 11:20 - CONCLUSION: No acute disease. Christian Orozco MD Assessment and Plan Assessment: (1) Carotid arterial disease Status: Acute Plan Pt seen, examined. Has potential TIA-like symptoms though not classic. R carotid ulcer but no HD significant lesion; L carotid ok MRI shows acute L hemispheric infarct Needs medical management and surveillance carotid duplex, which I will arrange in 6m Problem Qualifiers (1) Carotid arterial disease: Qualified Code: I77.9 - Bilateral carotid artery disease Kevin Shukla MD Jan 31, 2017 08:48
[2017-01-31] MEDS: SODIUM CHLORIDE 0.9% FLUSH 5 ML FLUSH IV FLUSH SCH ×2 (09:00→20:53)
--- NOTE | 2017-01-31 13:14 | HHI.PR ---
Subjective Remarks Patient reports she is feeling okay. No new neurological symptoms. INR 1.1 today Objective Vitals Vital Signs Date Time Temp Pulse Resp B/P Pulse Ox O2 Delivery O2 Flow Rate FiO2 01/31/17 12:00 98.2 72 17 148/67 98 01/31/17 10:07 68 01/31/17 09:33 97.6 78 16 131/62 99 01/31/17 04:00 98.2 72 18 159/72 98 01/31/17 00:00 97.8 77 18 136/83 96 01/30/17 23:40 75 01/30/17 20:00 98.2 74 18 146/65 97 01/30/17 16:00 98.3 71 18 158/73 99 I/O 01/30/17 01/30/17 01/30/17 01/31/17 01/31/17 01/31/17 07:00 15:00 23:00 07:00 15:00 23:00 Intake Total 468 ml 480 ml 755 ml Balance 468 ml 480 ml 755 ml Intake Oral 480 ml IV Total 468 ml 667 ml Other 88 ml # Voids 4 3 # Bowel Movements 3 1 Result Diagram: 01/30/17 1748 01/29/17 1115 Objective Remarks GENERAL: This is a well-nourished, well-developed patient, in no apparent distress. CARDIOVASCULAR: Normal rate and regular rhythm without murmurs, gallops, or rubs. RESPIRATORY: Good respiratory efforts. Breath sounds equal and clear to auscultation bilaterally. GASTROINTESTINAL: Abdomen soft, non-tender, non-distended. Normal active bowel sounds MUSCULOSKELETAL: Extremities without cyanosis, or edema. NEURO: Alert & Oriented x4 to person, place, time, situation. Moves all ext x4 PSYCH: Appropriate mood and affect. A/P Problem List: (1) CVA (cerebral vascular accident) ICD Code: I63.9 Status: Acute (2) Carotid arterial disease ICD Code: I77.9 Status: Acute (3) TIA (transient ischemic attack) ICD Code: G45.9 Status: Acute Assessment and Plan 66-year-old female with: CVA: Symptoms resolved. MRI revealed a small left cortical acute infarct and an old right CVA. Patient with known carotid artery disease. - Appreciate neurology following. Given she has had bilateral strokes. Recommendation is for Coumadin. Continue heparin drip transitioning to Coumadin with INR goal of 2-2.5. - INR. 1.1 today. Currently on Coumadin 5 mg daily. Status post 10 mg 1 - Follow daily INR Carotid artery disease. Has been evaluated by vascular surgery. Medical management is advised. - Continue aspirin, statin. GI prophylaxis: Stool softener PRN constipation. DVT PPx: On heparin. Problem Qualifiers (1) Carotid arterial disease: Qualified Code: I77.9 - Bilateral carotid artery disease (2) TIA (transient ischemic attack): Qualified Code: G45.9 - Transient cerebral ischemia, unspecified type Ivania Bird MD Jan 31, 2017 13:14
[2017-01-31] MEDS: WARFARIN SOD 5 MG TAB PO SCH (15:40)
[2017-01-31 17:12] LABS: APTT (PATIENT) 48.5 SEC (24.3-30.1)
--- NOTE | 2017-01-31 17:22 | HM ---
Date Performed: 01/30/2017 Time Performed: 08:30:00 HOOKUP DATE: 01/30/17 08:30:00 AM Fri ANALYSIS START TIME: 01/30/2017 8:35:00 AM ANALYSIS END TIME: 01/31/2017 7:32:38 AM PATIENT AGE: 66 PATIENT HEIGHT: 61 PATIENT WEIGHT: 100 DRUG LIST: ROOM 1507 PATIENT DIAGNOSIS: TIA VS. CVA EXPRESSIVE APHASIA TEST NARRATIVE: The patient's average heart rate was 72 BPM. No episodes of tachycardia wer e noted. No episodes of bradycardia were noted. No pauses exceeding 2.0 seconds were noted. 120 ventricular ectopics, which represented < 1% of the total beat count, were noted. The highest ve ntricular ectopic frequency occurred from 10:00 PM to 11:00 PM Fri. During this time 23 VE(s) occurr ed. Ventricular ectopics were observed as 120 isolated beat(s) only. No couplets or runs were noted . 6 supraventricular ectopics, which represented < 1% of the total beat count, were noted. The h ighest supraventricular ectopic frequency occurred from 07:00 AM to 08:00 AM Sat. During this time 3 SVE(s) occurred. No episodes of ST depression (defined as -1.0 mm or more) were noted in channel 1. No episodes of ST depression (defined as -1.0 mm or more) were noted in channel 2. No episodes of ST depression (defined as -1.0 mm or more) were noted in channel 3. NO DIARY ENTRIES WERE RECORDED TEST INTERPRETATION: Agree with the above interpretation Signed by : Anthony Hamilton
[2017-01-31] MEDS: DIAZEPAM 5 MG TAB PO PRN (20:52)
[2017-02-01] VITALS (7 sets, daily range): BP systolic 120–158; BP diastolic 57–73; PULSE 60–75; RESP 16–18; TEMP 97.6–98.2; O2SAT 97–99
[2017-02-01] MEDS: INSULIN ASPART SUPPLEMENTAL SCALE SQ SCH ×4 (06:16→21:00)
[2017-02-01] MEDS: SODIUM CHLORIDE 0.9% FLUSH 5 ML FLUSH IV FLUSH SCH ×2 (08:51→21:00)
[2017-02-01 09:21] LABS: APTT (PATIENT) 62.3 SEC (24.3-30.1); INTERNATIONAL NORMALIZED RATIO 1.7 RATIO; PROTHROMBIN TIME - PATIENT 18.7 SEC (9.8-11.6)
--- NOTE | 2017-02-01 10:45 | ECHRPT ---
Indication: CVA/TIA CONCLUSIONS The left ventricular systolic function is low normal with an estimated ejection fraction in the rang e of 50- 55%. Wall thickness is normal. Normal left ventricular size. Trace mitral valve regurgitation. The aortic valve is not well visualized. No aortic valve stenosis. Mild aortic valve regurgitation. The tricuspid valve is not well visualized. The pulmonary valve is not well visualized. There is a small-moderate pericardial effusion present. BP: 165 / 74 HR: 65 Rhythm: MEASUREMENTS (Male / Female) Normal Values Technical Quality:Fair 2D ECHO LV Diastolic Diameter PLAX 3.6 cm 4.2 - 5.9 / 3.9 - 5.3 cm LV Systolic Diameter PLAX 2.8 cm IVS Diastolic Thickness 0.8 cm 0.6 - 1.0 / 0.6 - 0.9 cm LVPW Diastolic Thickness 0.8 cm 0.6 - 1.0 / 0.6 - 0.9 cm LV Relative Wall Thickness 0.4 LVOT Diameter 1.5 cm M-MODE Aortic Root Diameter MM 2.5 cm LA Systolic Diameter MM 2.2 cm LA Ao Ratio MM 0.9 AV Cusp Separation MM 1.8 cm DOPPLER AV Peak Velocity 130.0 cm/s AV Peak Gradient 6.8 mmHg AI Peak Velocity 395.5 cm/s AI Peak Gradient 62.6 mmHg AI Pressure Half Time 918.0 ms LVOT Peak Velocity 87.9 cm/s LVOT Peak Gradient 3.1 mmHg AV Area Cont Eq pk 1.2 cm MR Peak Velocity 303.0 cm/s MR Peak Gradient 36.7 mmHg Mitral E Point Velocity 96.3 cm/s Mitral A Point Velocity 88.4 cm/s Mitral E to A Ratio 1.1 LV E' Lateral Velocity 7.3 cm/s Mitral E to LV E' Lateral Ratio 13.2 LV E' Septal Velocity 6.6 cm/s Mitral E to LV E' Septal Ratio 14.5 PV Peak Velocity 106.4 cm/s PV Peak Gradient 4.5 mmHg FINDINGS LEFT VENTRICLE The left ventricular systolic function is low normal with an estimated ejection fraction in the rang e of 50- 55%. Wall thickness is normal. Normal left ventricular size. RIGHT VENTRICLE Normal right ventricular size and systolic function. LEFT ATRIUM The left atrial size is normal. RIGHT ATRIUM The right atrial size is normal. ATRIAL SEPTUM Normal atrial septal thickness without atrial level shunting by limited color doppler interrogation. AORTA The aortic root and proximal ascending aorta are normal in size on limited imaging. MITRAL VALVE Structurally normal mitral valve. Trace mitral valve regurgitation. AORTIC VALVE The aortic valve is not well visualized. No aortic valve stenosis. Mild aortic valve regurgitation. TRICUSPID VALVE The tricuspid valve is not well visualized. Structurally normal tricuspid valve. No tricuspid valve stenosis or regurgitation. PULMONARY VALVE The pulmonary valve is not well visualized. VESSELS The inferior vena cava is normal in size. PERICARDIUM There is a small-moderate pericardial effusion present. Lucho Verduzco MD (Electronically Signed) Final Date:01 February 2017 10:44
--- NOTE | 2017-02-01 11:06 | HHI.PR ---
Subjective Remarks No acute events overnight. Afebrile, vital signs stable. Patient's INR this morning 1.7. She complains of a mild headache. Denies any new neurologic symptoms. Objective Vitals Vital Signs Date Time Temp Pulse Resp B/P Pulse Ox O2 Delivery O2 Flow Rate FiO2 02/01/17 08:00 98.0 73 17 121/73 99 02/01/17 05:15 98.1 67 16 158/67 98 02/01/17 00:00 97.9 75 18 135/67 97 01/31/17 21:00 66 01/31/17 20:15 98.0 74 19 140/65 97 01/31/17 16:00 98.2 69 17 161/71 97 01/31/17 12:00 98.2 72 17 148/67 98 I/O 01/31/17 01/31/17 01/31/17 02/01/17 02/01/17 02/01/17 07:00 15:00 23:00 07:00 15:00 23:00 Intake Total 755 ml 960 ml 1000 ml 800 ml Output Total 0 ml Balance 755 ml 960 ml 1000 ml 800 ml Intake Oral 960 ml 1000 ml 800 ml IV Total 667 ml Other 88 ml Output Urine Total 0 ml # Voids 3 0 4 # Bowel Movements 4 0 4 Result Diagram: 01/30/17 1748 01/29/17 1115 Objective Remarks GENERAL: This is a well-nourished, well-developed patient, in no apparent distress. CARDIOVASCULAR: Normal rate and regular rhythm without murmurs, gallops, or rubs. RESPIRATORY: Good respiratory efforts. Breath sounds equal and clear to auscultation bilaterally. GASTROINTESTINAL: Abdomen soft, non-tender, non-distended. Normal active bowel sounds MUSCULOSKELETAL: Extremities without cyanosis, or edema. NEURO: Alert & Oriented x4 to person, place, time, situation. Moves all ext x4. cranial nerves II through XII intact PSYCH: Appropriate mood and affect. A/P Problem List: (1) CVA (cerebral vascular accident) ICD Code: I63.9 Status: Acute (2) Carotid arterial disease ICD Code: I77.9 Status: Acute (3) TIA (transient ischemic attack) ICD Code: G45.9 Status: Acute Assessment and Plan 66-year-old female with: CVA: Symptoms resolved. MRI revealed a small left cortical acute infarct and an old right CVA. Patient with known carotid artery disease. Echo within normal limits. - Appreciate neurology following. Given she has had bilateral strokes. Recommendation is for Coumadin. - Continue heparin drip transitioning to Coumadin with INR goal of 2-2.5. - INR. 1.7 today. Currently on Coumadin 5 mg daily. - Follow daily INR - DC once INR therapeutic Carotid artery disease. Has been evaluated by vascular surgery. Medical management is advised. - Continue aspirin, statin. GI prophylaxis: Stool softener PRN constipation. DVT PPx: On heparin. Discharge Planning Anticipate discharge to home tomorrow, once INR 2.0 or greater. Problem Qualifiers (1) Carotid arterial disease: Qualified Code: I77.9 - Bilateral carotid artery disease (2) TIA (transient ischemic attack): Qualified Code: G45.9 - Transient cerebral ischemia, unspecified type Celestina Ferrer MD R3 Feb 01, 2017 11:06
[2017-02-01] MEDS ORDERED: ZOLPIDEM TARTRATE 10 MG TAB PO PRN (11:45)
[2017-02-01] MEDS: WARFARIN SOD 5 MG TAB PO SCH (16:37)
[2017-02-02 02:29] VITALS: PULSE 71
[2017-02-02 04:40] VITALS: BP 148/63; PULSE 69; RESP 18; TEMP 98.1; O2SAT 98
[2017-02-02] MEDS: INSULIN ASPART SUPPLEMENTAL SCALE SQ SCH (07:00)
--- NOTE | 2017-02-02 07:55 | HHI.PR ---
Subjective Remarks sr Objective Vital Signs Date Time Temp Pulse Resp B/P Pulse Ox O2 Delivery O2 Flow Rate FiO2 02/02/17 02:29 71 02/01/17 20:15 97.6 60 17 120/60 99 02/01/17 20:00 98.1 66 17 126/58 98 02/01/17 16:00 98.2 69 17 138/62 99 02/01/17 12:00 97.9 69 17 123/57 99 02/01/17 08:00 98.0 73 17 121/73 99 I/O 02/01/17 02/01/17 02/01/17 02/02/17 02/02/17 02/02/17 07:00 15:00 23:00 07:00 15:00 23:00 Intake Total 800 ml 720 ml 82 ml Balance 800 ml 720 ml 82 ml Intake Oral 800 ml 720 ml IV Total 82 ml # Voids 4 4 # Bowel Movements 4 3 Result Diagram: 01/30/17 1748 01/29/17 1115 Objective Remarks vff no new spells moves all well nl speech up and walks nl Assessment and Plan Assessment and Plan imp mri small left cortical acute cva old r cva mra cow i thought looked overall ok echo andholter neg pend LDL 156 trop neg plan is coumdin with bilat cva i highly recommend she stay on iv hep until inr 2-2.5 watch daily inr pend today 1.7 yest needs statin started STILL NOT DONE MED TEAM PLZ START B4 DC fu w me 8 weeks med team plz follow inr 10mg today then 5mg a day no greens needs cardionet o/p Yair Chong MD Feb 02, 2017 07:54
[2017-02-02 08:00] VITALS: BP 101/57; PULSE 78; RESP 17; TEMP 98.9; O2SAT 98
[2017-02-02] MEDS: SODIUM CHLORIDE 0.9% FLUSH 5 ML FLUSH IV FLUSH SCH (09:00)
[2017-02-02 09:18] LABS: APTT (PATIENT) 66.7 SEC (24.3-30.1); INTERNATIONAL NORMALIZED RATIO 2.4 RATIO; PROTHROMBIN TIME - PATIENT 27.3 SEC (9.8-11.6)
[2017-02-02] MEDS ORDERED: COUM5TAB PO (12:41)
[2017-02-02] MEDS ORDERED: ATOR40TA16 PO (12:41)
--- NOTE | 2017-02-02 12:42 | HHI.DS ---
Discharge Summary Admission Date Jan 29, 2017 at 12:37 Discharge Date: Feb 02, 2017 Admitting Diagnosis expressive aphasia; LUE weakness; CAD; TIA v CVA (1) CVA (cerebral vascular accident) ICD Code: I63.9 Diagnosis: Principal (2) Carotid arterial disease ICD Code: I77.9 Diagnosis: Secondary Procedures See hospital course Brief History - From Admission 66-year-old female who presented to the hospital with expressive aphasia, left facial numbness, occasional left upper extremity weakness and numbness. The patient reports she has been having the symptoms over the past few months and they will usually resolves on the own. She is followed by neurology outpatient. She presented with similar symptoms yesterday and a CT revealed 60- 70% carotid stenosis however she refused to be admitted. He did physician discussed the case with neurology and vascular surgery who recommended admission. Currently the patient reports that her speech is much better. She still has some residual left facial numbness but no appreciable upper or lower extremity weakness. She continues to smoke one pack of cigarettes per day. She denies change in her vision or lightheadedness. CBC/BMP: 01/30/17 1748 01/29/17 1115 Significant Findings Laboratory Tests Test 01/30/17 01/31/17 01/31/17 02/01/17 17:48 07:00 16:38 07:28 Platelet Count 95 TH/MM3 (150-450) Platelet Estimate LOW (NORMAL) Platelet Morphology Comment ENLARGED (NORMAL) Activated Partial 35.0 SEC 49.7 SEC 48.5 SEC 62.3 SEC Thromboplast Time (24.3-30.1) (24.3-30.1) (24.3-30.1) (24.3-30.1) Prothrombin Time 12.7 SEC 18.7 SEC (9.8-11.6) (9.8-11.6) Test 02/02/17 08:55 Prothrombin Time 27.3 SEC (9.8-11.6) Activated Partial 66.7 SEC Thromboplast Time (24.3-30.1) Imaging Last Impressions Head Magnetic Resonance Angiography 8/10/17 1824 Signed Impressions: Service Date/Time: January 23:00 - CONCLUSION: Findings suggest probable mild hypoperfusion superimposed on mild intracranial atherosclerotic disease. No perceptible acute thrombosis. No aneurysm. Brett Ruth MD Carotid Artery Ultrasound 01/29/171823 Signed Impressions: Service Date/Time: January 18:39 - CONCLUSION: Negative examination for a hemodynamically significant carotid stenosis. Ulceration on the right by CTA. Az Osman MD Brain MRI 01/29/171823 Signed Impressions: Service Date/Time: , January 29, 2017 23:00 - CONCLUSION: 1. Tiny acute cortical infarct of the left parietal lobe, probably embolic. 2. Small, old infarct of the right parietal lobe. 3. Chronic encephalomalacia and gliosis anteromedially of both frontal lobes probably related to remote trauma. Brtet Ruth MD Chest X-Ray 01/29/171113 Signed Impressions: Service Date/Time: January 11:20 - CONCLUSION: No acute disease. Christian Orozco MD PE at Discharge GENERAL: This is a well-nourished, well-developed patient, in no apparent distress. CARDIOVASCULAR: Normal rate and regular rhythm without murmurs, gallops, or rubs. RESPIRATORY: Good respiratory efforts. Breath sounds equal and clear to auscultation bilaterally. GASTROINTESTINAL: Abdomen soft, non-tender, non-distended. Normal active bowel sounds MUSCULOSKELETAL: Extremities without cyanosis, or edema. NEURO: Alert & Oriented x4 to person, place, time, situation. Moves all ext x4. cranial nerves II through XII intact speech is normal. Patient is walking in the room with no difficulty. PSYCH: Appropriate mood and affect. Pt update on day of discharge Follow-up for CVA Patient's daughter is at the bedside during interview. Patient is anxious to go home. She stated that her speech is fine but she'll have moments when she starts stuttering. She stated that usually when she stress our has not gotten a lot of sleep. She denies any numbness or any focal weakness. Patient stated that she has a follow-up appointment with her PCP tomorrow and will have a follow-up INR with him. She stated that he will monitor her INR. Patient stated that she was also on a statin about 2 or 3 years ago but stopped it. Patient stated that she is willing to go back on the statin. Patient declined cognitive evaluation by speech therapist. Dealt with patient's nurse. Hospital Course 66-year-old female with: CVA: Symptoms resolved. MRI revealed a small left cortical acute infarct and an old right CVA. Patient with known carotid artery disease. Echo within normal limits. - Appreciate neurology following. Given she has had bilateral strokes. Recommendation is for Coumadin. - Continue heparin drip transitioning to Coumadin with INR goal of 2-2.5. On the day of discharge INR was 2.4. -Per Dr. Chong continue with Coumadin 5 mg. Patient stated that she appointment with her PCP the next day and that he will follow with her INR. -Statin was also started due to LDL 148. Patient was on a statin prior but stopped the medication on her own she did not want to take any medication. Patient educated on the importance of taking statins especially secondary to her CVA. Patient says she understands and she will take the medication as directed. Carotid artery disease. Has been evaluated by vascular surgery. Medical management is advised. - Continue aspirin, statin. -Recommend repeating in 6 months. Patient is aware. GI prophylaxis: Stool softener PRN constipation. Pt Condition on Discharge: Good Discharge Disposition: Discharge Home Discharge Time: > 30 minutes Discharge Instructions DIET: Follow Instructions for: Heart Healthy Diet, Coumadin (Warfarin) Diet Activities you can perform: Regular-No Restrictions Follow up Referrals: Neurology - 2 Months with Yair Chong MD PCP Follow-up - Next Day Vascular Surgery with Kevin Shukla MD New Medications: Atorvastatin (Atorvastatin) 40 Mg Tab 40 MG PO HS high cholestrol #30 Ref 0 TAB Warfarin (Coumadin) 5 Mg Tab 5 MG PO DAILY@1600 goal INR is 2-3. multiple stroke #10 Ref 0 TAB Continued Medications: Diazepam (Diazepam) 5 Mg Tab 5 MG PO BID PRN ANXIETY Ref 0 TAB Discontinued Medications: Aspirin (Aspirin) 325 Mg Tab 325 MG PO DAILY #30 Ref 0 TAB Natalie Prescott MD Feb 02, 2017 12:42
--- NOTE | 2017-02-02 12:42 | HHI.DCPOC ---
Discharge Care Plan Diagnosis: (1) CVA (cerebral vascular accident) (2) Carotid arterial disease (3) Expressive aphasia (4) Arm numbness left Goals to Promote Your Health * To prevent worsening of your condition and complications * To maintain your health at the optimal level Directions to Meet Your Goals Take your medications as prescribed Follow your dietary instruction Follow activity as directed Keep your appointments as scheduled Take your immunizations and boosters as scheduled If your symptoms worsen call your PCP, if no PCP go to Urgent Care Center or Emergency Room Smoking is Dangerous to Your Health. Avoid second hand smoke Call the 24-hour hour crisis hotline for domestic abuse at Natalie Prescott MD Feb 02, 2017 12:42
[2017-02-02] MEDS ORDERED: ATORVASTATIN 40 MG TAB PO SCH (21:00)
== END 2017-02-02 13:27 | disposition home or self-care (01) | DRG 66 ==
LOC: NEPC 10:37 → NEDA 12:37 → N05A 17:27
PROVIDERS: ADMIT Family Medicine; ATTEND Family Medicine
DX: I63.9 Cerebral infarction, unspecified (principal); G93.89 Other specified disorders of brain; R47.01 Aphasia; F17.210 Nicotine dependence, cigarettes, uncomplicated; I77.89 Other specified disorders of arteries and arterioles; I25.10 Atherosclerotic heart disease of native coronary artery without angina pectoris; G47.00 Insomnia, unspecified; R29.702 NIHSS score 2; R20.0 Anesthesia of skin; Z79.82 Long term (current) use of aspirin; Z86.73 Personal history of transient ischemic attack (TIA), and cerebral infarction without residual deficits
CPT/HCPCS: 70544; 70553; 71010; 80053; 80061; 80307; 81001; 82607; 82948; 84443; 84484; 85025; 85610; 85652; 85730; 86038; 93005; 93225; 93226; 93306; 93880; 95819; 96365; A9579; J1644; J1815; J7030